=== PATIENT | female | born 1960 | race Caucasian/White ===

== ENCOUNTER 2016-06-06 19:39 | Emergency (ER) | payer MEDICARE ==
[2016-06-06 20:55] LABS: PH,URINE 6.5 (5.0 - 9.0); URINE BILIRUBIN NEGATIVE (NEGATIVE); URINE BLOOD NEGATIVE (NEGATIVE); URINE GLUCOSE (UA) NORMAL (NORMAL); URINE KETONE NEGATIVE (NEGATIVE); URINE LEUKOCYTE ESTERASE 1+ (NEGATIVE); URINE NITRATE NEGATIVE (NEGATIVE); URINE PROTEIN NEGATIVE (NEGATIVE); URINE RBC 0-5 /[HPF] (0-2); UROBILINOGEN NORMAL mg/dL (<1.0)
[2016-06-06 20:56] LABS: URINE BACTERIA FEW (NONE SEEN); URINE MUCUS TRACE; URINE SQUAMOUS EPITHELIAL CELL 0-10 /[HPF] (NONE SEEN)
== END 2016-06-06 22:04 | disposition home or self-care (01) ==
LOC: ER 19:39
PROVIDERS: Emergency Medicine
DX: N39.0 Urinary tract infection, site not specified (principal); R10.9 Unspecified abdominal pain; M06.9 Rheumatoid arthritis, unspecified; F41.9 Anxiety disorder, unspecified; Z87.440 Personal history of urinary (tract) infections; Z90.49 Acquired absence of other specified parts of digestive tract; Z98.890 Other specified postprocedural states; R11.0 Nausea; R30.0 Dysuria; M54.9 Dorsalgia, unspecified; Z88.6 Allergy status to analgesic agent; Z91.041 Radiographic dye allergy status; Z79.899 Other long term (current) drug therapy
CPT/HCPCS: 81001; 87086; 99283; J8597